=== PATIENT | female | born 1965 | race Caucasian/White ===

== ENCOUNTER 2021-12-21 07:33 | Day surgery (SDC) | payer OTHER ==
[~2021-12-21] VITALS: Ht 149.9 cm; Wt 77.1 kg
[2021-12-21] MEDS ORDERED: fentaNYL citrate 0.05 MG/ML VIAL ONE (09:37)
[2021-12-21] MEDS ORDERED: MIDAZOLAM 5 MG/5 ML VIAL ONE (09:38)
[2021-12-21] MEDS ORDERED: LIDOCAINE 2% 100 MG/5 ML UJET TP ONE (09:38)
[2021-12-21] MEDS ORDERED: fentaNYL citrate 0.05 MG/ML VIAL IVP ONE (10:10)
[2021-12-25] MEDS ORDERED: fentaNYL citrate 0.05 MG/ML VIAL IVP ONE (08:40)
== END 2021-12-21 10:50 | disposition home or self-care (01) ==
LOC: MOR 07:33 → MMU 07:33 → MOR 10:50
PROVIDERS: ATTEND Internal Medicine Gastroenterology
DX: Z12.11 Encounter for screening for malignant neoplasm of colon (principal); K57.30 Diverticulosis of large intestine without perforation or abscess without bleeding; Z20.822 Contact with and (suspected) exposure to COVID-19
CPT/HCPCS: 45378; 87426; J3010; J2250